=== PATIENT | male | born 1990 | race American Indian/Alaskan Native ===

== ENCOUNTER 2020-10-08 11:16 | Emergency (ER) | payer OTHER ==
[2020-10-08 11:29] VITALS: BP 130/77
--- NOTE | 2020-10-08 11:47 | Emergency Department Report ---
Minor Respiratory - HPI Chief Complaint: Weakness Stated Complaint: FEELING WEAK/SORE Time Seen by Provider: 10/08/20 11:33 Duration: 3 Days Minor Respiratory: Yes Rhinorrhea, Yes Sore Throat, Yes Cough, Yes Fever, No Abl e to Tolerate Fluids, No Ear Pain, No Sick Contacts, No Hemoptysis, No Chest Pain, No Shortness of Breath Other History: Is a pleasant 30-year-old male presents the emergency department chief complaint of generalized malaise, low-grade fever 100, generalized body aches, sore throat, cough. Patient denies any known exposure to COVID-19. Patient denies any associated headache, dizziness, blurry vision, nausea,, diarrhea, chest pain, shortness of breath, loss of taste or smell, diarrhea or any other associated symptoms. He denies any known past medical history, current medication use or known allergies to medications that he is aware of. ED Review of Systems ROS: Stated complaint: FEELING WEAK/SORE Other details as noted in HPI Comment: All other systems reviewed and negative Constitutional: see HPI, fever, malaise. denies: chills Eyes: denies: eye pain, eye discharge, vision change ENT: as per HPI, congestion. denies: ear pain, throat pain Respiratory: cough. denies: shortness of breath, wheezing Cardiovascular: denies: chest pain, palpitations Endocrine: no symptoms reported Gastrointestinal: denies: abdominal pain, nausea, diarrhea Genitourinary: denies: urgency, dysuria Musculoskeletal: as per HPI, myalgia. denies: back pain, joint swelling, arthralgia Skin: denies: rash, lesions Neurological: denies: headache, weakness, paresthesias Psychiatric: denies: anxiety, depression Hematological/Lymphatic: denies: easy bleeding, easy bruising ED Past Medical Hx - Past Medical History Previous Medical History?: No - Surgical History Past Surgical History?: No - Social History Smoking Status: Current Every Day Smoker Substance Use Type: None Minor Respiratory Exam - Exam General: Vital signs noted. No distress. Alert and acting appropriately. HEENT: Yes Moist Mucous Membranes, Yes Rhinorrhea, No Pharyngeal Erythema, No Pharyngeal Exudates, No Conjuctival Injection, No Frontal Tenderness, No M axillary Tenderness Ear: Neither TM Bulge, Neither TM Erythema, Neither EAC Pain, Neither EAC Discharge Neck: Yes Supple, No Adenopathy Lungs: Yes Good Air Exchange, No Wheezes, No Ronchi, No Stridor, No Cough, No Labored Respirations, No Retractions, No Use of Accessory Muscles, No Other Abnormal Lung Sounds Heart: Yes Regular, No Murmur Abdomen: Yes Normal Bowel Sounds, No Tenderness, No Peritoneal Signs Skin: No Rash, No Edema Neurologic: Alert and oriented, no deficits. Musculoskeletal: Unremarkable. ED Course Vital Signs 10/08/20 11:28 Temperature 98.7 F Pulse Rate 82 Respiratory 18 Rate Blood Pressure 130/77 O2 Sat by Pulse 96 Oximetry ED Medical Decision Making - Medical Decision Making Patient well-appearing and nontoxic. Vital signs are stable. He is PERC negative and low risk by Wells criteria. Lung sounds are clear. Ear nose and throat exam is unremarkable. Abdominal exam is unremarkable. Recommended outpatient COVID-19 test and follow-up in the emerge department any change or worsening symptoms of shortness of breath. He instructed to take Tylenol Motrin for symptoms. - Differential Diagnosis Acute viral syndrome, influenza, COVID-19. Critical care attestation.: If time is entered above; I have spent that time in minutes in the direct care of this critically ill patient, excluding procedure time. ED Disposition Clinical Impression: Suspected COVID-19 virus infection Disposition: DC-01 TO HOME OR SELFCARE Is pt being admited?: No Condition: Stable Instructions: COVID-19 Frequently Asked Questions Referrals: PRIMARY CARE, [Primary Care Provider] - 3-5 Days Forms: Work/School Release Form(ED) Time of Disposition: 11:47
== END 2020-10-08 11:51 | disposition home or self-care (01) ==
LOC: ED 11:16
DX: F17.200 Nicotine dependence, unspecified, uncomplicated (principal); Z20.828 Contact with and (suspected) exposure to other viral communicable diseases; Z79.899 Other long term (current) drug therapy
CPT/HCPCS: 99282